=== PATIENT | female | born 1975 | race Caucasian/White ===

== ENCOUNTER 2023-07-28 10:06 | Emergency (ER) | payer BC ==
[2023-07-28] MEDS ORDERED: Bacitracin Oint 1 GM U/D Packet TOP ONE (10:52)
[2023-07-28] MEDS ORDERED: Lidocaine 1% 5 ML VIAL INJECT ONE (10:52)
== END 2023-07-28 12:43 | disposition home or self-care (01) ==
LOC: JP.ED 10:06
DX: S60.852A Superficial foreign body of left wrist, initial encounter (principal); Z88.4 Allergy status to anesthetic agent; W45.8XXA Other foreign body or object entering through skin, initial encounter
CPT/HCPCS: 99282